=== PATIENT | female | born 2005 | race Caucasian/White ===

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

== ENCOUNTER 2025-01-04 17:03 | Emergency (ER) | payer OTHER ==
[~2025-01-04] VITALS: Ht 160 cm; Wt 45.4 kg
[2025-01-04 18:47] VITALS: BP 119/75
== END 2025-01-04 18:47 | disposition home or self-care (01) ==
LOC: ED 17:03
DX: H57.02 Anisocoria (principal); Z88.2 Allergy status to sulfonamides
CPT/HCPCS: 70450; 70496; 70498; 99284-25; Q9967

== ENCOUNTER 2025-07-19 21:23 | Emergency (ER) | payer OTHER ==
[~2025-07-19] VITALS: Ht 160 cm; Wt 45.4 kg
[2025-07-19] MEDS ORDERED: SODIUM CHLORIDE 0.9% 1,000 ML IV ONE (23:45)
[2025-07-19] MEDS ORDERED: MORPHINE SULFATE 4 MG/ML VIAL IV ONE (23:45)
[2025-07-20 00:23] LABS: BASOPHILS 0.5 % (0.1-1.2); EOSINOPHILS 0.1 % (0.7-5.8); LYMPHOCYTES 21.6 % (19.3-51.7); MCH 31.7 PG (25.6-32.2); MCHC 35.1 g/dL (32.2-35.5); MCV 90.3 fL (79.4-94.8); MONOCYTES 5.9 % (4.7-12.5); NEUTROPHILS 71.8 % (34.0-71.1); RBC 4.32 M/uL (3.93-5.22)
[2025-07-20 00:43] LABS: ALT (SGPT) 21.0 U/L (14-59); AST (SGOT) 15.0 U/L (15-37); GLOMERULAR FILTRATION RATE,EST 134.0 mL/min (>60); PROTEIN, TOTAL 7.8 g/dL (6.4-8.2); UREA NITROGEN 10.0 mg/dL (7-18)
[2025-07-20 00:52] LABS: BLOOD/HGB, URINE NEGATIVE (Negative); KETONE, URINE TRACE (Negative); LEUK ESTERASE, URINE NEGATIVE (negative); NITRITE, URINE NEGATIVE (negative)
[2025-07-20] MEDS ORDERED: HYDROCODON-ACE1 EA10 PO (02:06)
[2025-07-20] MEDS ORDERED: ONDANSETRON ODT8 MG PO (02:06)
[2025-07-20] MEDS ORDERED: methylPREDNISolone 4 MG HOME.PACK PO ONE (02:15)
[2025-07-20] MEDS ORDERED: ONDANSETRON 4 MG HOME.PACK SL ONE (02:15)
[2025-07-20] MEDS ORDERED: HYDROCODONE BIT/ACETAMINOPHEN 5/325 MG 1 TAB HOME.PACK PO ONE (02:15)
[2025-07-20 02:25] VITALS: BP 132/81
== END 2025-07-20 02:26 | disposition home or self-care (01) ==
LOC: ED 21:23
PROVIDERS: Family Medicine
DX: I88.9 Nonspecific lymphadenitis, unspecified (principal); R10.31 Right lower quadrant pain; Z88.2 Allergy status to sulfonamides
CPT/HCPCS: 36415; 74177; 80053; 81003; 84703; 85025; 96374; 96375; 99284-25; A9270; J2270; J2405; J7030; Q9967